=== PATIENT | male | born 1965 | race Caucasian/White ===

== ENCOUNTER 2018-08-11 10:52 | Day surgery (SDC) | payer BC, OTHER ==
[2018-08-11] MEDS ORDERED: Sodium Chloride 0.9% 2.5 ML Syringe FLUSH PRN (10:55)
[2018-08-11] MEDS ORDERED: Sodium Chloride 0.9% 10 ML Syringe FLUSH PRN (10:55)
[2018-08-11] MEDS ORDERED: HYDROmorphone 2 MG/ML Syringe IVPUSH ONE (10:55)
[2018-08-11] MEDS ORDERED: ceFAZolin 1 GM in Premix Bag 1 BAG IV ONE ×2 (10:56→11:39)
[2018-08-11] MEDS ORDERED: Ondansetron 4 MG/2 ML SDV IVPUSH ONE (10:56)
--- NOTE | 2018-08-11 11:06 | EDM.PDOC ---
ED HPI GENERAL MEDICAL PROBLEM - General Stated Complaint: INJURED HAND Time Seen by Provider: 08/11/18 10:55 Source of Information: Reports: Patient History Limitations: Reports: No Limitations - History of Present Illness INITIAL COMMENTS - FREE TEXT/NARRATIVE: History of present illness: []Patient was at work and the bucket of a backhoe crushed his left index and middle finger. Patient denies any other injuries. He has no sensation of his index finger and his middle finger is numb. Review of systems: As per history of present illness and below otherwise all systems reviewed and negative. Past medical history: As per history of present illness and as reviewed below otherwise noncontributory. Surgical history: As per history of present illness and as reviewed below otherwise noncontributory. Social history: No reported history of drug or alcohol abuse. Family history: As per history of present illness and as reviewed below otherwise noncontributory. Physical exam: General: Well developed, well nourished in NAD HEENT: Atraumatic, normocephalic, pupils reactive, negative for conjunctival pallor or scleral icterus, mucous membranes moist, throat clear, neck supple, nontender, trachea midline. Lungs: Clear to auscultation, breath sounds equal bilaterally, chest nontender. Heart: S1S2, regular, negative for clicks, rubs, or JVD. Abdomen: NABS, Soft, nondistended, nontender. Negative for masses or hepatosplenomegaly. Negative for costovertebral tenderness. Pelvis: Stable nontender. Genitourinary: Deferred. Rectal: Deferred. Extremities: Open crush injury/lacerations to the left index distal to MCP joints with visible bone and cartilage, distal portion of the finger is cool pale and insensate. There is also a crush injury/laceration to the left middle finger just proximal to the PIP joint with visible cartilage and bone. Patient has sensation distal to the injury and capillary refill is brisk. negative for cords or calf pain. Neurovascular unremarkable. Neuro: Awake, alert, oriented. Cranial nerves II through XII unremarkable. Cerebellum unremarkable. Motor and sensory unremarkable throughout. Exam nonfocal. Skin:warm and dry Diagnostics: X-ray left hand Therapeutics: Dilaudid, Zofran, Ancef, normal saline ED Course: 11 AM- Dr. Diaz consulted Impression: Crush Injury left next and middle fingers Prescriptions: Plan: Admit to the OR Definitive disposition and diagnosis as appropriate pending reevaluation and review of above. left hand Pain Score (Numeric/FACES): 2 - Related Data Allergies Allergy/AdvReac Type Severity Reaction Status Date / Time No Known Allergies Allergy Verified 08/11/18 11:05 Home Meds: Home Meds . [No Known Home Meds] 08/11/18 [History] Past Medical History Cardiovascular History: Reports: Hypertension - Infectious Disease History Infectious Disease History: Reports: Chicken Pox - Past Surgical History Male Surgical History: Reports: Other (See Below) Social & Family History - Caffeine Use Caffeine Use: Reports: Coffee Caffeine Use Comment: 1 cup/day ED ROS GENERAL - Review of Systems Review Of Systems: ROS reveals no pertinent complaints other than HPI. ED EXAM, UPPER BACK/NECK PAIN - Physical Exam Exam: See Below (See history of present illness) Course - Vital Signs Last Recorded V/S: Last Vital Signs Temp 96.2 F 08/11/18 11:00 Pulse 73 08/11/18 11:00 Resp 18 08/11/18 11:46 BP 142/95 H 08/11/18 11:00 Pulse Ox 100 08/11/18 11:46 - Orders/Labs/Meds Orders: Active Orders 24 hr Category Date Time Status Hand Comp Min 3V Rt [CR] Stat Exams 08/11/18 10:57 Stop Req Sodium Chloride 0.9% [Normal Saline] 1,000 ml Med 08/11/18 11:12 Active IV .Bolus Sodium Chloride 0.9% [Saline Flush] Med 08/11/18 10:55 Active 10 ml FLUSH ASDIRECTED PRN Sodium Chloride 0.9% [Saline Flush] Med 08/11/18 10:55 Active 2.5 ml FLUSH ASDIRECTED PRN ceFAZolin [Ancef] 1 gm Med 08/11/18 11:39 Active Premix Bag 1 bag IV ONETIME Saline Lock Insert [OM.PC] Stat Oth 08/11/18 10:55 Ordered Medication Orders Sodium Chloride (Normal Saline) 1,000 mls @ 999 mls/hr IV .Bolus ONE Stop: 08/11/18 12:12 Last Admin: 08/11/18 11:15 Dose: 999 mls/hr Cefazolin Sodium/Dextrose 1 gm (/ Premix) 50 mls @ 100 mls/hr IV ONETIME ONE Stop: 08/11/18 12:08 Last Admin: 08/11/18 11:44 Dose: 100 mls/hr Ondansetron HCl (Zofran) Confirm Administered Dose 4 mg .ROUTE .STK-MED ONE Stop: 08/11/18 11:45 Sodium Chloride (Saline Flush) 10 ml FLUSH ASDIRECTED PRN PRN Reason: Keep Vein Open Sodium Chloride (Saline Flush) 2.5 ml FLUSH ASDIRECTED PRN PRN Reason: Keep Vein Open Labs: Laboratory Tests 08/11/18 08/11/18 Range/Units 11:02 11:02 WBC 5.26 (4.0-11.0) K/uL RBC 4.75 (4.50-5.90) M/uL Hgb 15.5 (13.0-17.0) g/dL Hct 43.2 (38.0-50.0) % MCV 90.9 (80.0-98.0) fL MCH 32.6 H (27.0-32.0) pg MCHC 35.9 (31.0-37.0) g/dL RDW Std Deviation 41.0 (28.0-62.0) fl RDW Coeff of Kavin 12 (11.0-15.0) % Plt Count 229 (150-400) K/uL MPV 9.80 (7.40-12.00) fL Neut % (Auto) 59.0 (48.0-80.0) % Lymph % (Auto) 31.2 (16.0-40.0) % [place] % (Auto) 8.4 (0.0-15.0) % Eos % (Auto) 1.0 (0.0-7.0) % Baso % (Auto) 0.4 (0.0-1.5) % Neut # (Auto) 3.1 (1.4-5.7) K/uL Lymph # (Auto) 1.6 (0.6-2.4) K/uL [place] # (Auto) 0.4 (0.0-0.8) K/uL Eos # (Auto) 0.1 (0.0-0.7) K/uL Baso # (Auto) 0.0 (0.0-0.1) K/uL Nucleated RBC % 0.0 /100WBC Nucleated RBCs # 0 K/uL Sodium 142 (136-148) mmol/L Potassium 3.6 (3.5-5.1) mmol/L Chloride 105 (98-107) mmol/L Carbon Dioxide 23.6 (21.0-32.0) mmol/L BUN 16 (7.0-18.0) mg/dL Creatinine 1.4 H (0.8-1.3) mg/dL Est Cr Clr Drug Dosing 62.28 mL/min Estimated GFR (MDRD) 52.8 ml/min Glucose 74 (74-106) mg/dL Calcium 9.2 (8.5-10.1) mg/dL Total Bilirubin 0.8 (0.2-1.0) mg/dL AST 21 (15-37) IU/L ALT 32 (14-63) IU/L Alkaline Phosphatase 71 (46-116) U/L Total Protein 7.6 (6.4-8.2) g/dL Albumin 4.1 (3.4-5.0) g/dL Globulin 3.5 (2.6-4.0) g/dL Albumin/Globulin Ratio 1.2 (0.9-1.6) Meds: Medications Generic Name Dose Route Start Last Admin Trade Name Freq PRN Reason Stop Dose Admin Sodium Chloride 1,000 mls @ 999 mls/hr 08/11/18 11:12 08/11/18 11:15 Normal Saline IV 08/11/18 12:12 999 mls/hr .Bolus ONE Administration Cefazolin Sodium/Dextrose 1 gm 50 mls @ 100 mls/hr 08/11/18 11:39 08/11/18 11 :44 / Premix IV 08/11/18 12:08 100 mls/hr ONETIME ONE Administration Ondansetron HCl Confirm 08/11/18 11:44 Zofran Administered 08/11/18 11:45 Dose 4 mg .ROUTE .STK-MED ONE Sodium Chloride 10 ml 08/11/18 10:55 Saline Flush FLUSH ASDIRECTED PRN Keep Vein Open Sodium Chloride 2.5 ml 08/11/18 10:55 Saline Flush FLUSH ASDIRECTED PRN Keep Vein Open Discontinued Medications Generic Name Dose Route Start Last Admin Trade Name Freq PRN Reason Stop Dose Admin Hydromorphone HCl 1 mg 08/11/18 10:55 08/11/18 11:05 Dilaudid IVPUSH 08/11/18 10:56 1 mg ONETIME ONE Administration Cefazolin Sodium/Dextrose 1 gm 50 mls @ 100 mls/hr 08/11/18 10:56 08/11/18 11 :05 / Premix IV 08/11/18 11:25 100 mls/hr ONETIME ONE Administration Lidocaine Confirm 08/11/18 11:44 Xylocaine-Mpf 2% Administered 08/11/18 11:45 Dose 5 ml .ROUTE .STK-MED ONE Ondansetron HCl 4 mg 08/11/18 10:56 08/11/18 11:04 Zofran IVPUSH 08/11/18 10:57 4 mg ONETIME ONE Administration Rocuronium [place] Confirm 08/11/18 11:44 Zemuron Administered 08/11/18 11:45 Dose 100 mg .ROUTE .STK-MED ONE Succinylcholine Chloride Confirm 08/11/18 11:44 Quelicin Administered 08/11/18 11:45 Dose 200 mg .ROUTE .STK-MED ONE Departure - Departure Time of Disposition: 11:42 Disposition: Still A Patient 30 Condition: Good Clinical Impression: Crushing injury of left index finger, initial encounter, Crushing injury of left middle finger, initial encounter - Discharge Information *PRESCRIPTION DRUG MONITORING PROGRAM REVIEWED*: Not Applicable *COPY OF PRESCRIPTION DRUG MONITORING REPORT IN PATIENT ROHIT: Not Applicable - My Orders Last 24 Hours: My Active Orders 08/11/18 10:55 Sodium Chloride 0.9% [Saline Flush] 10 ml FLUSH ASDIRECTED PRN Sodium Chloride 0.9% [Saline Flush] 2.5 ml FLUSH ASDIRECTED PRN Saline Lock Insert [OM.PC] Stat 08/11/18 10:57 Hand Comp Min 3V Rt [CR] Stat 08/11/18 11:12 Sodium Chloride 0.9% [Normal Saline] 1,000 ml IV .Bolus 08/11/18 11:39 ceFAZolin [Ancef] 1 gm Premix Bag 1 bag IV ONETIME - Assessment/Plan Last 24 Hours: My Active Orders 08/11/18 10:55 Sodium Chloride 0.9% [Saline Flush] 10 ml FLUSH ASDIRECTED PRN Sodium Chloride 0.9% [Saline Flush] 2.5 ml FLUSH ASDIRECTED PRN Saline Lock Insert [OM.PC] Stat 08/11/18 10:57 Hand Comp Min 3V Rt [CR] Stat 08/11/18 11:12 Sodium Chloride 0.9% [Normal Saline] 1,000 ml IV .Bolus 08/11/18 11:39 ceFAZolin [Ancef] 1 gm Premix Bag 1 bag IV ONETIME
[2018-08-11] MEDS ORDERED: Sodium Chloride 0.9% 1,000 ML IV ONE (11:12)
--- NOTE | 2018-08-11 11:20 | CR ---
EXAMINATION: Left hand HISTORY: Crush COMPARISON: None TECHNIQUE: 3 views FINDINGS: There is extensively comminuted fracture involving the proximal second phalanx, mildly displaced. There is a likely intra-articular, dislocated fracture through the distal aspect of the third proximal phalanx. There is adjacent soft tissue swelling and moderate adjacent debris. Remaining osseous structures and joint spaces otherwise appear intact. Bone mineralization is normal. IMPRESSION: 1. Extensively comminuted proximal second phalanx fracture. 2. Likely intra-articular, fracture dislocation of the second proximal phalanx distally at the PIP joint.
[2018-08-11] MEDS ORDERED: Rocuronium 10 MG/ML 10 ML Syringe ONE (11:44)
[2018-08-11] MEDS ORDERED: Midazolam 1 MG/ML 2 ML SDV ONE (11:44)
[2018-08-11] MEDS ORDERED: fentaNYL 250 MCG/5 ML SDV ONE (11:44)
[2018-08-11] MEDS ORDERED: Lidocaine 2% 5 ML SDV ONE (11:44)
[2018-08-11] MEDS ORDERED: Succinylcholine 200 MG/10 ML MDV ONE (11:44)
[2018-08-11] MEDS ORDERED: Propofol 200 MG/20 ML SDV ONE (11:44)
[2018-08-11] MEDS ORDERED: Ondansetron 4 MG/2 ML SDV ONE (11:44)
--- NOTE | 2018-08-11 11:46 | PCM.PREANE ---
Preanesthetic Assessment - Anesthesia/Transfusion/Family Hx Anesthesia History: Prior Anesthesia Without Reaction Other Type of Anesthesia Reaction Comment: Denies any problem with prior nephrectomy (was kidney donor) Family History of Anesthesia Reaction: No - Review of Systems General: No Symptoms Pulmonary: No Symptoms Cardiovascular: No Symptoms Gastrointestinal: No Symptoms Neurological: No Symptoms Other: Reports: None - Physical Assessment NPO Status Date: 08/11/18 (candy bat 1 hr TRAVEL OT) O2 Sat by Pulse Oximetry: 100 Respiratory Rate: 18 Vital Signs: Last Vital Signs Temp 96.2 F 08/11/18 11:00 Pulse 73 08/11/18 11:00 Resp 18 08/11/18 11:00 BP 142/95 H 08/11/18 11:00 Pulse Ox 100 08/11/18 11:00 Height: 5 ft 10 in Weight: 90.718 kg ASA Class: 2E Mental Status: Alert & Oriented x3 Airway Class: Mallampati = 2 Dentition: Reports: Normal Dentition ROM/Head Extension: Full Lungs: Clear to Auscultation, Normal Respiratory Effort Cardiovascular: Regular Rate, Regular Rhythm - Lab Values: Laboratory Last Values WBC 5.26 K/uL (4.0-11.0) 08/11/18 11:02 RBC 4.75 M/uL (4.50-5.90) 08/11/18 11:02 Hgb 15.5 g/dL (13.0-17.0) 08/11/18 11:02 Hct 43.2 % (38.0-50.0) 08/11/18 11:02 MCV 90.9 fL (80.0-98.0) 08/11/18 11:02 MCH 32.6 pg (27.0-32.0) H 08/11/18 11:02 MCHC 35.9 g/dL (31.0-37.0) 08/11/18 11:02 RDW Std Deviation 41.0 fl (28.0-62.0) 08/11/18 11:02 RDW Coeff of Kavin 12 % (11.0-15.0) 08/11/18 11:02 Plt Count 229 K/uL (150-400) 08/11/18 11:02 MPV 9.80 fL (7.40-12.00) 08/11/18 11:02 Neut % (Auto) 59.0 % (48.0-80.0) 08/11/18 11:02 Lymph % (Auto) 31.2 % (16.0-40.0) 08/11/18 11:02 [place] % (Auto) 8.4 % (0.0-15.0) 08/11/18 11:02 Eos % (Auto) 1.0 % (0.0-7.0) 08/11/18 11:02 Baso % (Auto) 0.4 % (0.0-1.5) 08/11/18 11:02 Neut # (Auto) 3.1 K/uL (1.4-5.7) 08/11/18 11:02 Lymph # (Auto) 1.6 K/uL (0.6-2.4) 08/11/18 11:02 [place] # (Auto) 0.4 K/uL (0.0-0.8) 08/11/18 11:02 Eos # (Auto) 0.1 K/uL (0.0-0.7) 08/11/18 11:02 Baso # (Auto) 0.0 K/uL (0.0-0.1) 08/11/18 11:02 Nucleated RBC % 0.0 /100WBC 08/11/18 11:02 Nucleated RBCs # 0 K/uL 08/11/18 11:02 Sodium 142 mmol/L (136-148) 08/11/18 11:02 Potassium 3.6 mmol/L (3.5-5.1) 08/11/18 11:02 Chloride 105 mmol/L (98-107) 08/11/18 11:02 Carbon Dioxide 23.6 mmol/L (21.0-32.0) 08/11/18 11:02 BUN 16 mg/dL (7.0-18.0) 08/11/18 11:02 Creatinine 1.4 mg/dL (0.8-1.3) H 08/11/18 11:02 Est Cr Clr Drug Dosing 62.28 mL/min 08/11/18 11:02 Estimated GFR (MDRD) 52.8 ml/min 08/11/18 11:02 Glucose 74 mg/dL (74-106) 08/11/18 11:02 Calcium 9.2 mg/dL (8.5-10.1) 08/11/18 11:02 Total Bilirubin 0.8 mg/dL (0.2-1.0) 08/11/18 11:02 AST 21 IU/L (15-37) 08/11/18 11:02 ALT 32 IU/L (14-63) 08/11/18 11:02 Alkaline Phosphatase 71 U/L (46-116) 08/11/18 11:02 Total Protein 7.6 g/dL (6.4-8.2) 08/11/18 11:02 Albumin 4.1 g/dL (3.4-5.0) 08/11/18 11:02 Globulin 3.5 g/dL (2.6-4.0) 08/11/18 11:02 Albumin/Globulin Ratio 1.2 (0.9-1.6) 08/11/18 11:02 - Allergies Allergies/Adverse Reactions: Allergies Allergy/AdvReac Type Severity Reaction Status Date / Time No Known Allergies Allergy Verified 08/11/18 11:05 - Blood Blood Available: No - Anesthesia Plan Pre-Op Medication Ordered: Other (ancef 2 gms, dilaudid) - Acknowledgements Anesthesia Type Planned: General Anesthesia Pt an Appropriate Candidate for the Planned Anesthesia: Yes Alternatives and Risks of Anesthesia Discussed w Pt/Guardian: Yes Pt/Guardian Understands and Agrees with Anesthesia Plan: Yes Additional Comments: GET-RSI PreAnesthesia Questionnaire Cardiovascular History: Reports: Hypertension Hematologic History: Reports: Anticoagulation Therapy - Infectious Disease History Infectious Disease History: Reports: Chicken Pox - Past Surgical History Male Surgical History: Reports: Other (See Below) - SUBSTANCE USE Smoking Status *Q: Never Smoker Recreational Drug Use History: No - HOME MEDS Home Medications: Home Meds . [No Known Home Meds] 08/11/18 [History] - CURRENT (IN HOUSE) MEDS Current Meds: Current Medications Sodium Chloride (Normal Saline) 1,000 mls @ 999 mls/hr IV .Bolus ONE Stop: 08/11/18 12:12 Last Admin: 08/11/18 11:15 Dose: 999 mls/hr Cefazolin Sodium/Dextrose 1 gm (/ Premix) 50 mls @ 100 mls/hr IV ONETIME ONE Stop: 08/11/18 12:08 Sodium Chloride (Saline Flush) 10 ml FLUSH ASDIRECTED PRN PRN Reason: Keep Vein Open Sodium Chloride (Saline Flush) 2.5 ml FLUSH ASDIRECTED PRN PRN Reason: Keep Vein Open Discontinued Medications Hydromorphone HCl (Dilaudid) 1 mg IVPUSH ONETIME ONE Stop: 08/11/18 10:56 Last Admin: 08/11/18 11:05 Dose: 1 mg Cefazolin Sodium/Dextrose 1 gm (/ Premix) 50 mls @ 100 mls/hr IV ONETIME ONE Stop: 08/11/18 11:25 Last Admin: 08/11/18 11:05 Dose: 100 mls/hr Ondansetron HCl (Zofran) 4 mg IVPUSH ONETIME ONE Stop: 08/11/18 10:57 Last Admin: 08/11/18 11:04 Dose: 4 mg
[2018-08-11] MEDS ORDERED: Bupivacaine 0.25% 10 ML SDV ONE (12:19)
[2018-08-11] MEDS ORDERED: Lidocaine 1% 20 ML MDV ONE (12:19)
[2018-08-11] MEDS ORDERED: Bupivacaine 0.25%/EPINEPHrine 1:200,000 10 ML SDV ONE (12:26)
[2018-08-11] MEDS ORDERED: ePHEDrine 50 MG/ML SDV ONE (12:48)
[2018-08-11] MEDS ORDERED: Atropine 0.1 MG/ML 10 ML Syringe IVPUSH PRN ×2 (12:55)
[2018-08-11] MEDS ORDERED: EPINEPHrine 1:10,000 1 MG/10 ML Syringe IVPUSH PRN (12:55)
[2018-08-11] MEDS ORDERED: Albuterol 0.083% 2.5 MG/3 ML Neb Soln NEB PRN (12:55)
[2018-08-11] MEDS ORDERED: 50% Dextrose in Water 50 ML Syringe IVPUSH PRN (12:55)
[2018-08-11] MEDS ORDERED: fentaNYL 100 MCG/2 ML SDV IVPUSH PRN (12:55)
[2018-08-11] MEDS ORDERED: Naloxone 0.4 MG/ML Syringe IVPUSH PRN (12:55)
--- NOTE | 2018-08-11 14:41 | PCM.HP ---
H&P History of Present Illness - General Date of Service: 08/11/18 Admit Problem/Dx: crush injury to thee left hand Index and middle fingers Source of Information: Patient, Provider, RN History Limitations: Reports: No Limitations - History of Present Illness Initial Comments - Free Text/Narative: Patient using heavy equipment and the bucket of the cut off machine unloader filled with gravel came down on his hand. Smashed the left index and middle fingers. No other injuries. Small abrasion to the ring finger. Index finger is not viable and white, non-sensate with skin loss and significant bony comminution, middle finger with viability and sensate. We discussed thoroughly the risks and benefits and I would recommend amputation fo the index. We will try to salvage the middle but the fracture pattern at the PIP joint is very poor. He understands and all questions answered. Onset of Symptoms: Reports: Today, Sudden Symptom Onset Date: 08/11/18 Duration of Symptoms: Reports: Minutes: (30) Location: Reports: Upper Extremity, Left Quality: Reports: Ache, Pressure, Throbbing Severity: Moderate Improves with: Reports: None Worsens with: Reports: None, Movement Context: Denies: Trauma Associated Symptoms: Reports: No Other Symptoms left hand Pain Score (Numeric/FACES): 2 - Related Data Allergies/Adverse Reactions: Allergies Allergy/AdvReac Type Severity Reaction Status Date / Time No Known Allergies Allergy Verified 08/11/18 11:05 Home Medications: Home Meds . [No Known Home Meds] 08/11/18 [History] Past Medical History Cardiovascular History: Reports: Hypertension Hematologic History: Reports: Anticoagulation Therapy - Infectious Disease History Infectious Disease History: Reports: Chicken Pox - Past Surgical History Male Surgical History: Reports: Other (See Below) Social & Family History - Family History Family Medical History: Noncontributory - Tobacco Use Smoking Status *Q: Never Smoker - Caffeine Use Caffeine Use: Reports: Coffee Caffeine Use Comment: 1 cup/day - Recreational Drug Use Recreational Drug Use: No H&P Review of Systems - Review of Systems: Review Of Systems: See Below General: Reports: No Symptoms HEENT: Reports: No Symptoms Pulmonary: Reports: No Symptoms Cardiovascular: Reports: No Symptoms Gastrointestinal: Reports: No Symptoms Genitourinary: Reports: No Symptoms Musculoskeletal: Reports: Hand Pain Skin: Reports: Wound Psychiatric: Reports: No Symptoms Neurological: Reports: Numbness (left index and ulnar aspect of left middle finger. ) Hematologic/Lymphatic: Reports: No Symptoms Immunologic: Reports: No Symptoms Exam - Exam Exam: See Below - Vital Signs Vital Signs: Last Vital Signs Temp 96.2 F 08/11/18 11:00 Pulse 92 08/11/18 14:24 Resp 12 08/11/18 14:24 BP 136/84 08/11/18 14:24 Pulse Ox 92 L 08/11/18 14:24 Weight: 200 lb - Exam General: Alert, Oriented, Cooperative HEENT: EOMI, Mucosa Moist & Price Neck: Supple Lungs: Clear to Auscultation, Normal Respiratory Effort Cardiovascular: Regular Rate, Regular Rhythm GI/Abdominal Exam: Soft Extremities: Other (left index finger is white and not viable. Tendon intact but skin with complete transection and not communicating with proximal skin. Significnat bony comminution and contamination. Tissue damage. The middle finger has normal capillary refill but open wound at the pip joint area with near circumferential involvement of the skin. Less surroundign trauma but still with poor fracture pattern of the pip joint. Tendons intact at least partially on the volar aspect. ) Skin: Warm, Dry, Wound (open wound as above on the left middle and index fingers. ABrasion to the left ring finger dorsally superficial. ) Neurological: Other (distally numb on the index finger. Middle finger sensate on the radial aspect - less on the ulnar aspect. ) Neuro Extensive - Mental Status: Alert, Oriented x3 Psychiatric: Alert, Normal Affect, Normal Mood - Patient Data Lab Results Last 24 hrs: Laboratory Results - last 24 hr 08/11/18 08/11/18 Range/Units 11:02 11:02 WBC 5.26 (4.0-11.0) K/uL RBC 4.75 (4.50-5.90) M/uL Hgb 15.5 (13.0-17.0) g/dL Hct 43.2 (38.0-50.0) % MCV 90.9 (80.0-98.0) fL MCH 32.6 H (27.0-32.0) pg MCHC 35.9 (31.0-37.0) g/dL RDW Std Deviation 41.0 (28.0-62.0) fl RDW Coeff of Kavin 12 (11.0-15.0) % Plt Count 229 (150-400) K/uL MPV 9.80 (7.40-12.00) fL Neut % (Auto) 59.0 (48.0-80.0) % Lymph % (Auto) 31.2 (16.0-40.0) % [place] % (Auto) 8.4 (0.0-15.0) % Eos % (Auto) 1.0 (0.0-7.0) % Baso % (Auto) 0.4 (0.0-1.5) % Neut # (Auto) 3.1 (1.4-5.7) K/uL Lymph # (Auto) 1.6 (0.6-2.4) K/uL [place] # (Auto) 0.4 (0.0-0.8) K/uL Eos # (Auto) 0.1 (0.0-0.7) K/uL Baso # (Auto) 0.0 (0.0-0.1) K/uL Nucleated RBC % 0.0 /100WBC Nucleated RBCs # 0 K/uL Sodium 142 (136-148) mmol/L Potassium 3.6 (3.5-5.1) mmol/L Chloride 105 (98-107) mmol/L Carbon Dioxide 23.6 (21.0-32.0) mmol/L BUN 16 (7.0-18.0) mg/dL Creatinine 1.4 H (0.8-1.3) mg/dL Est Cr Clr Drug Dosing 62.28 mL/min Estimated GFR (MDRD) 52.8 ml/min Glucose 74 (74-106) mg/dL Calcium 9.2 (8.5-10.1) mg/dL Total Bilirubin 0.8 (0.2-1.0) mg/dL AST 21 (15-37) IU/L ALT 32 (14-63) IU/L Alkaline Phosphatase 71 (46-116) U/L Total Protein 7.6 (6.4-8.2) g/dL Albumin 4.1 (3.4-5.0) g/dL Globulin 3.5 (2.6-4.0) g/dL Albumin/Globulin Ratio 1.2 (0.9-1.6) Result Diagrams: 08/11/18 11:02 08/11/18 11:02 *Q Meaningful Use (ADM) - VTE *Q VTE Anticoagulation Contraindications: Med/TX Not Indicated/Need - VTE Risk Assess *Q Each Risk Factor Represents 1 Point: Age 41 - 59 years, Minor Surgery Planned Total Score 1 Point Risk Factors: 2 Each Risk Factor Represents 2 Points: None Total Score 2 Point Risk Factors: 0 Each Risk Factor Represents 3 Points: None Total Score 3 Point Risk Factors: 0 Each Risk Factor Represents 5 Points: None Total Score 5 Point Risk Factors: 0 Venous Thromboembolism Risk Factor Score *Q: 2 - Problem List (1) Traumatic amputation of left index finger SNOMED Code(s): 42226995 ICD Code: S68.111A - COMPLETE TRAUMATIC MCP AMPUTATION OF LEFT INDEX FINGER, INIT Status: Acute Priority: High Current Visit: Yes (2) Laceration of extensor muscle, fascia and tendon of left index finger at wrist and hand level, initial encounter SNOMED Code(s): 115730212, 702973045 ICD Code: S66.321A - LACERAT EXTN MUSC/FASC/TEND L IDX FNGR AT [facility]/D , INIT Status: Acute Priority: High Current Visit: Yes (3) Laceration of flexor muscle, fascia and tendon of left index finger at wrist and hand level, initial encounter SNOMED Code(s): 818224079, 203314444 ICD Code: S66.121A - LACERAT FLEXOR MUSC/FASC/TEND L IDX FNGR AT [facility]/D , INIT Status: Acute Priority: High Current Visit: Yes (4) Fracture of proximal phalanx of left index finger SNOMED Code(s): 983641480 ICD Code: S62.611A - DISP FX OF PROXIMAL PHALANX OF LEFT INDEX FINGER, INIT Status: Acute Priority: High Current Visit: Yes Qualifiers: Encounter type: initial encounter Fracture type: open Fracture alignment : displaced Qualified Code(s): S62.611B - Displaced fracture of proximal phalanx of left index finger, initial encounter for open fracture (5) Fracture of proximal phalanx of left middle finger SNOMED Code(s): 737176328 ICD Code: S62.613A - DISP FX OF PROXIMAL PHALANX OF LEFT MIDDLE FINGER, INIT Status: Acute Priority: High Current Visit: Yes Qualifiers: Encounter type: initial encounter Fracture type: open Fracture alignment : displaced Qualified Code(s): S62.613B - Displaced fracture of proximal phalanx of left middle finger, initial encounter for open fracture (6) Crushing injury of left index finger, initial encounter SNOMED Code(s): 88828016, 00341900 ICD Code: S67.191A - CRUSHING INJURY OF LEFT INDEX FINGER, INITIAL ENCOUNTER Status: Acute Priority: High Current Visit: Yes (7) Crushing injury of left middle finger, initial encounter SNOMED Code(s): 60253529, 01529690 ICD Code: S67.193A - CRUSHING INJURY OF LEFT MIDDLE FINGER, INITIAL ENCOUNTER Status: Acute Priority: High Current Visit: Yes Problem List Initiated/Reviewed/Updated: Yes Orders Last 24hrs: Active Orders 24 hr Category Date Time Status Blood Glucose Check, Bedside [RC] PRN Care 08/11/18 12:55 Active Notify Provider Vital Signs [RC] ASDIRECTED Care 08/11/18 12:55 Active Oxygen Therapy [RC] PRN Care 08/11/18 12:55 Active RT Aerosol Therapy [RC] ASDIRECTED Care 08/11/18 12:55 Active RT Aerosol Therapy [RC] ASDIRECTED Care 08/11/18 12:55 Active Verify Patient Consent Obtain [RC] ASDIRECTED Care 08/11/18 11:49 Active Vital Signs [RC] Q5M Care 08/11/18 12:55 Active Nothing per Oral Now Diet [DIET] Diet 08/11/18 Breakfast Active Hand Comp Min 3V Rt [CR] Stat Exams 08/11/18 10:57 Stop Req Albuterol [Proventil Neb Soln] Med 08/11/18 12:55 Active 2.5 mg NEB ONETIME PRN Atropine [Atropine 0.1 MG/ML] Med 08/11/18 12:55 Active 0.5 mg IVPUSH ASDIRECTED PRN Atropine [Atropine 0.1 MG/ML] Med 08/11/18 12:55 Active 1 mg IVPUSH ASDIRECTED PRN Dextrose 50% in Water Med 08/11/18 12:55 Active 50 ml IVPUSH ASDIRECTED PRN EPINEPHrine [EPINEPHrine 1:10,000] Med 08/11/18 12:55 Active 1 mg IVPUSH ASDIRECTED PRN Naloxone [Narcan] Med 08/11/18 12:55 Active 0.1 mg IVPUSH ASDIRECTED PRN Sodium Chloride 0.9% [Saline Flush] Med 08/11/18 10:55 Active 10 ml FLUSH ASDIRECTED PRN Sodium Chloride 0.9% [Saline Flush] Med 08/11/18 10:55 Active 2.5 ml FLUSH ASDIRECTED PRN fentaNYL [Sublimaze] Med 08/11/18 12:55 Active 50 mcg IVPUSH Q5M PRN Medication Administration Instruction [OM.PC] Routine Ot 08/11/18 11:49 Ordered Saline Lock Insert [OM.PC] Stat Ot 08/11/18 10:55 Ordered Medication Orders Albuterol (Proventil Neb Soln) 2.5 mg NEB ONETIME PRN PRN Reason: Wheezing Atropine Sulfate (Atropine 0.1 Mg/Ml) 0.5 mg IVPUSH ASDIRECTED PRN PRN Reason: Hypo-perfusion Atropine Sulfate (Atropine 0.1 Mg/Ml) 1 mg IVPUSH ASDIRECTED PRN PRN Reason: Hypo-Perfusion Dextrose/Water (Dextrose 50% In Water) 50 ml IVPUSH ASDIRECTED PRN PRN Reason: Hypoglycemia Epinephrine HCl (Epinephrine 1:10,000) 1 mg IVPUSH ASDIRECTED PRN PRN Reason: ACLS Guidelines Fentanyl (Sublimaze) 50 mcg IVPUSH Q5M PRN PRN Reason: Pain Naloxone HCl (Narcan) 0.1 mg IVPUSH ASDIRECTED PRN PRN Reason: Respiratory Depression Sodium Chloride (Saline Flush) 10 ml FLUSH ASDIRECTED PRN PRN Reason: Keep Vein Open Sodium Chloride (Saline Flush) 2.5 ml FLUSH ASDIRECTED PRN PRN Reason: Keep Vein Open Assessment/Plan Comment:: To OR for irrigation, debridement and repair. Informed consent obtained and risks and benefits discussed thoroughly. All questions answered. Anticipate amputation of the index and possible salvage of the middle. Will monitor overnight for pain control and additional observation.
--- NOTE | 2018-08-11 14:49 | PCM.OPNOTE ---
- General Post-Op/Procedure Note Date of Surgery/Procedure: 08/11/18 Operative Procedure(s): 1. Amputation at the mCP joint of the left index finger. 2. Flexor Tendon Repair left middle finger zone 2. 3. Extensor tendon repair left middle finger. 4. Open reduction and internal fixation of the left middle finger proximal phalanx fracture. Pre Op Diagnosis: left index and middle finger crush injuries with near amputations. Post-Op Diagnosis: left index finger amputation, left middle finger extensor tendon laceration, left middle finger flexor digitorum superficialis tendon laceration and partial profundus laceration 40%, left middle finger proximal phalanx intraarticular open displaced fracture Anesthesia Technique: General ET Tube, Local Primary Surgeon: Martha Diaz Complications: None Condition: Fair
[2018-08-11] MEDS ORDERED: Morphine 2 MG/ML Syringe IVPUSH PRN (15:00)
[2018-08-11] MEDS ORDERED: Ibuprofen 800 MG Tab PO PRN (15:00)
[2018-08-11] MEDS ORDERED: Ondansetron 4 MG Tab.DIS PO PRN (15:00)
--- NOTE | 2018-08-11 15:05 | PCM.POSTAN ---
POST ANESTHESIA ASSESSMENT - MENTAL STATUS Mental Status: Alert, Oriented - RESPIRATORY Respiratory Status: Respiratory Rate WNL, Airway Patent, O2 Saturation Stable - CARDIOVASCULAR CV Status: Pulse Rate WNL, Blood Pressure Stable - GASTROINTESTINAL GI Status: No Symptoms - PAIN Pain Score: 0 - POST OP HYDRATION Hydration Status: Adequate & Stable - OBSERVATIONS Free Text/Narrative:: The patient tolerated the procedure well. There were no apparent anesthetic complications at this time. Discharge to floor per criteria.
[2018-08-11] MEDS ORDERED: Prochlorperazine 5 MG in Sodium Chloride 0.9% 50 ML IV PRN (16:36)
[2018-08-11] MEDS ORDERED: Promethazine 25 MG Tab PO PRN (16:36)
--- NOTE | 2018-08-11 16:39 | PCM.SN ---
- Free Text/Narrative Note: Patient doing well post op except nausea. Denies pain. Will add compazine and phenergan as options/backup if needed. Continue pain control and close observation.
[2018-08-11] MEDS ORDERED: Prochlorperazine 10 MG/2 ML SDV IV PRN (16:50)
--- NOTE | 2018-08-11 18:13 | OR ---
SURGEON: JEAN TREJO MD DATE OF PROCEDURE: 08/11/2018 PROCEDURE: 1. Left index finger revision amputation at the MCP joint. 2. Left middle finger extensor tendon laceration repair. 3. Left middle finger flexor digitorum superficialis tendon laceration repair zone 2. 4. Left middle finger flexor digitorum profundus laceration of 40% - trimming and debridement. 5. Left middle finger proximal phalanx open reduction and internal fixation. PREOPERATIVE DIAGNOSIS: Left index and middle finger crush injuries with near amputation. POSTOPERATIVE DIAGNOSES: 1. Left index finger amputation. 2. Left middle finger extensor tendon laceration. 3. Left middle finger flexor digitorum superficialis tendon laceration. 4. Left middle finger flexor digitorum profundus laceration of 40%. 5. Left middle finger proximal phalanx intra-articular open displaced fracture. LIVE HANGER: None. ANESTHESIA: General ET tube with local. INDICATIONS: Mr. Slade is a 53-year-old gentleman who had a smash injury to his left index middle finger. He was seen in the emergency room, and risks and benefits were discussed of evaluation and treatment as necessary in the operating room. The index finger is likely nonviable and has significant comminution of the bony underlying structures, and thus revision amputation was discussed here. The middle finger is salvageable, though may require significant therapy to get back to normal use and range of motion. He understands this and would like to try. Risks and benefits were discussed including, but not limited to, bleeding, infection, damage to underlying or overlying structures, possible need for future interventions, and possible scarring. PROCEDURE IN DETAIL: After informed consent was obtained and placed on the chart, the patient was brought to the operating theater and laid in supine position. After adequate general anesthesia was obtained, the area was prepped and draped, and a time-out was completed to confirm side and site. Attention was first paid to the left index finger and a significant combination of the bone in addition to damage to the neurovascular bundles and significant loss of skin structure was elected for amputation. The amputation was completed at the metacarpophalangeal joint with traction neurectomies to the neurovascular bundles to ensure appropriate sensation and hopefully to prevent neuroma formation. Once the traction neurectomies were completed, hemostasis was obtained and the skin was closed in a horizontal mattress fashion at the metacarpophalangeal joint. Tendons were left in situ. Attention was then paid to the left middle finger and first, fluoroscopy was used to confirm the position of the bone. The bone was openly reduced under direct visualization and confirmed with fluoroscopy. A 0.45 K-wires were then placed through the open wounds under direct visualization from the distal fragments into the proximal portion. Appropriate reduction was obtained here, and thus additional 4-0 FiberWire stitch was used to secure the two small bone fragments dorsally. It is not anatomic, but it is very good for this type of fracture pattern. It is functional. Once adequately reapproximated for the bone, attention was then paid to the extensor tendon laceration. There was a longitudinal laceration through the extensor tendon causing it to sublux the lateral side. This was repaired using the 4-0 FiberWire in an interrupted horizontal mattress fashion. Once this was completed, attention was paid to the volar aspect of the finger. Neurovascular bundles were appreciated to be intact on the radial aspect of the finger. The ulnar aspect of the finger does have its digital nerve intact. We did not opt given the significant damage to the artery. We did not opt for microvascular repair. This was trimmed, hemostased, and attention was then paid to the flexor tendons. The flexor digitorum superficialis on the ulnar aspect was lacerated and this was repaired using a 4-0 FiberWire in a [id number] fashion. Once adequately repaired, attention was paid to the flexor digitorum profundus. Unfortunately, this was lacerated, but only approximately 30% to 40%. The bulk of the tendon was intact and given its proximity to the A2 jannie, it was elected to not repair this and it would likely cause more bulk in significant more scarring. Once this was trimmed appropriately and the digitorum superficialis had been repaired, the skin was closed in a horizontal mattress fashion using 5-0 nylon stitch. This was done after copious irrigation. The patient was then placed in a short-arm volar splint after dressings with Xeroform, fluffs, and a Kerlix. The patient tolerated this well. All counts and needles were correct at the end of the case. FOLLOWUP INSTRUCTIONS: We will maintain the patient in the hospital overnight for pain control and watch closely as well as deal with his nausea. ABEL / SUE /[id number] MTDD
[2018-08-12] MEDS: Acetaminophen/HYDROcodone 325-5 MG Tab PO PRN ×2 (02:14→06:05)
[2018-08-12 08:08] VITALS: BP 128/89
--- NOTE | 2018-08-12 09:10 | PCM.SURGPN ---
- General Info Date of Service: 08/12/18 POD#: 1 Post-Op Diagnosis: amputation of left index finger and repair of left middle finger tendons and bone. 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 Intact over radial aspect. ) Psychiatric: Reports: No Symptoms - Patient Data Vitals - Most Recent: Last Vital Signs Temp 97.8 F 08/12/18 08:00 Pulse 69 08/12/18 08:00 Resp 16 08/12/18 08:00 BP 128/89 08/12/18 08:00 Pulse Ox 97 08/12/18 08:00 Weight - Most Recent: 200 lb I&O - Last 24 Hours: Intake & Output 08/11/18 08/12/18 08/12/18 23:59 07:59 15:59 Intake Total 1000 750 Output Total 625 950 Balance 375 -200 Lab Results Last 24 Hrs: Laboratory Results - last 24 hr 08/11/18 08/11/18 Range/Units 11:02 11:02 WBC 5.26 (4.0-11.0) K/uL RBC 4.75 (4.50-5.90) M/uL Hgb 15.5 (13.0-17.0) g/dL Hct 43.2 (38.0-50.0) % MCV 90.9 (80.0-98.0) fL MCH 32.6 H (27.0-32.0) pg MCHC 35.9 (31.0-37.0) g/dL RDW Std Deviation 41.0 (28.0-62.0) fl RDW Coeff of Kavin 12 (11.0-15.0) % Plt Count 229 (150-400) K/uL MPV 9.80 (7.40-12.00) fL Neut % (Auto) 59.0 (48.0-80.0) % Lymph % (Auto) 31.2 (16.0-40.0) % [place] % (Auto) 8.4 (0.0-15.0) % Eos % (Auto) 1.0 (0.0-7.0) % Baso % (Auto) 0.4 (0.0-1.5) % Neut # (Auto) 3.1 (1.4-5.7) K/uL Lymph # (Auto) 1.6 (0.6-2.4) K/uL [place] # (Auto) 0.4 (0.0-0.8) K/uL Eos # (Auto) 0.1 (0.0-0.7) K/uL Baso # (Auto) 0.0 (0.0-0.1) K/uL Nucleated RBC % 0.0 /100WBC Nucleated RBCs # 0 K/uL Sodium 142 (136-148) mmol/L Potassium 3.6 (3.5-5.1) mmol/L Chloride 105 (98-107) mmol/L Carbon Dioxide 23.6 (21.0-32.0) mmol/L BUN 16 (7.0-18.0) mg/dL Creatinine 1.4 H (0.8-1.3) mg/dL Est Cr Clr Drug Dosing 62.28 mL/min Estimated GFR (MDRD) 52.8 ml/min Glucose 74 (74-106) mg/dL Calcium 9.2 (8.5-10.1) mg/dL Total Bilirubin 0.8 (0.2-1.0) mg/dL AST 21 (15-37) IU/L ALT 32 (14-63) IU/L Alkaline Phosphatase 71 (46-116) U/L Total Protein 7.6 (6.4-8.2) g/dL Albumin 4.1 (3.4-5.0) g/dL Globulin 3.5 (2.6-4.0) g/dL Albumin/Globulin Ratio 1.2 (0.9-1.6) Med Orders - Current: Current Medications Hydrocodone Bitart/Acetaminophen ([place] 325-5 Mg) 1 tab PO Q4H PRN PRN Reason: Pain (moderate 4-6) Last Admin: 08/12/18 06:05 Dose: 2 tab Ibuprofen (Motrin) 800 mg PO Q8H PRN PRN Reason: Pain (mild 1-3) Last Admin: 08/12/18 05:16 Dose: 800 mg Morphine Sulfate (Morphine) 2 mg IVPUSH Q2H PRN PRN Reason: Pain (severe 7-10) Ondansetron HCl (Zofran Odt) 4 mg PO Q6H PRN PRN Reason: Nausea/Vomiting Last Admin: 08/11/18 19:26 Dose: 4 mg Prochlorperazine Edisylate (Compazine) 5 mg IV Q6H PRN PRN Reason: NAUSEA AFTER ZOFRAN Promethazine HCl (Phenergan) 25 mg PO Q4H PRN PRN Reason: Nausea/Vomiting Sodium Chloride (Saline Flush) 10 ml FLUSH ASDIRECTED PRN PRN Reason: Keep Vein Open Sodium Chloride (Saline Flush) 2.5 ml FLUSH ASDIRECTED PRN PRN Reason: Keep Vein Open Discontinued Medications Albuterol (Proventil Neb Soln) 2.5 mg NEB ONETIME PRN PRN Reason: Wheezing Atropine Sulfate (Atropine 0.1 Mg/Ml) 0.5 mg IVPUSH ASDIRECTED PRN PRN Reason: Hypo-perfusion Atropine Sulfate (Atropine 0.1 Mg/Ml) 1 mg IVPUSH ASDIRECTED PRN PRN Reason: Hypo-Perfusion Bupivacaine HCl (Sensorcaine-Mpf 0.25%) Confirm Administered Dose 10 ml .ROUTE .STK-MED ONE Stop: 08/11/18 12:20 Bupivacaine HCl/Epinephrine Bitart (Marcaine 0.25%/Epinephrine 1:200,000) Confirm Administered Dose 10 ml .ROUTE .STK-MED ONE Stop: 08/11/18 12:27 Dextrose/Water (Dextrose 50% In Water) 50 ml IVPUSH ASDIRECTED PRN PRN Reason: Hypoglycemia Ephedrine Sulfate (Ephedrine Sulfate) Confirm Administered Dose 50 mg .ROUTE .STK-MED ONE Stop: 08/11/18 12:49 Epinephrine HCl (Epinephrine 1:10,000) 1 mg IVPUSH ASDIRECTED PRN PRN Reason: ACLS Guidelines Fentanyl (Sublimaze) Confirm Administered Dose 250 mcg .ROUTE .STK-MED ONE Stop: 08/11/18 11:45 Fentanyl (Sublimaze) 50 mcg IVPUSH Q5M PRN PRN Reason: Pain Hydromorphone HCl (Dilaudid) 1 mg IVPUSH ONETIME ONE Stop: 08/11/18 10:56 Last Admin: 08/11/18 11:05 Dose: 1 mg Cefazolin Sodium/Dextrose 1 gm (/ Premix) 50 mls @ 100 mls/hr IV ONETIME ONE Stop: 08/11/18 11:25 Last Admin: 08/11/18 11:05 Dose: 100 mls/hr Sodium Chloride (Normal Saline) 1,000 mls @ 999 mls/hr IV .Bolus ONE Stop: 08/11/18 12:12 Last Admin: 08/11/18 11:15 Dose: 999 mls/hr Cefazolin Sodium/Dextrose 1 gm (/ Premix) 50 mls @ 100 mls/hr IV ONETIME ONE Stop: 08/11/18 12:08 Last Admin: 08/11/18 11:44 Dose: 100 mls/hr Prochlorperazine Edisylate 5 (mg/ Sodium Chloride) 51 mls @ 150 mls/hr IV Q6H PRN PRN Reason: Nausea/Vomiting Lidocaine (Xylocaine-Mpf 2%) Confirm Administered Dose 5 ml .ROUTE .STK-MED ONE Stop: 08/11/18 11:45 Lidocaine HCl (Xylocaine 1%) Confirm Administered Dose 20 ml .ROUTE .STK-MED ONE Stop: 08/11/18 12:20 Midazolam HCl (Versed 1 Mg/Ml) Confirm Administered Dose 2 mg .ROUTE .STK-MED ONE Stop: 08/11/18 11:45 Naloxone HCl (Narcan) 0.1 mg IVPUSH ASDIRECTED PRN PRN Reason: Respiratory Depression Ondansetron HCl (Zofran) 4 mg IVPUSH ONETIME ONE Stop: 08/11/18 10:57 Last Admin: 08/11/18 11:04 Dose: 4 mg Ondansetron HCl (Zofran) Confirm Administered Dose 4 mg .ROUTE .STK-MED ONE Stop: 08/11/18 11:45 Propofol (Diprivan 20 Ml) Confirm Administered Dose 200 mg .ROUTE .STK-MED ONE Stop: 08/11/18 11:45 Rocuronium [place] (Zemuron) Confirm Administered Dose 100 mg .ROUTE .STK-MED ONE Stop: 08/11/18 11:45 Succinylcholine Chloride (Quelicin) Confirm Administered Dose 200 mg .ROUTE .STK -MED ONE Stop: 08/11/18 11:45 - Exam General: Alert, Oriented, Cooperative, No Acute Distress HEENT: Pupils Equal, Pupils Reactive, EOMI Lungs: Normal Respiratory Effort Extremities: Limited Range of Motion (due to pins and swelling of the middle finger. Ring and small with good range and no limitations aside from some minor swelling. ) Skin: Warm, Dry, Intact Neurological: No New Focal Deficit Psy/Mental Status: Alert, Normal Affect, Normal Mood - Problem List & Annotations (1) Traumatic amputation of left index finger SNOMED Code(s): 88662840 Code(s): S68.111A - COMPLETE TRAUMATIC MCP AMPUTATION OF LEFT INDEX FINGER, INIT Status: Acute Priority: High Current Visit: Yes (2) Laceration of extensor muscle, fascia and tendon of left index finger at wrist and hand level, initial encounter SNOMED Code(s): 500141163, 548010372 Code(s): S66.321A - LACERAT EXTN MUSC/FASC/TEND L IDX FNGR AT S/HND LV, INIT Status: Acute Priority: High Current Visit: Yes (3) Laceration of flexor muscle, fascia and tendon of left index finger at wrist and hand level, initial encounter SNOMED Code(s): 420234811, 320672879 Code(s): S66.121A - LACERAT FLEXOR MUSC/FASC/TEND L IDX FNGR AT S/HND , INIT Status: Acute Priority: High Current Visit: Yes (4) Fracture of proximal phalanx of left index finger SNOMED Code(s): 708496908 Code(s): S62.611A - DISP FX OF PROXIMAL PHALANX OF LEFT INDEX FINGER, INIT Status: Acute Priority: High Current Visit: Yes Qualifiers: Encounter type: initial encounter Fracture type: open Fracture alignment : displaced Qualified Code(s): S62.611B - Displaced fracture of proximal phalanx of left index finger, initial encounter for open fracture (5) Fracture of proximal phalanx of left middle finger SNOMED Code(s): 840747007 Code(s): S62.613A - DISP FX OF PROXIMAL PHALANX OF LEFT MIDDLE FINGER, INIT Status: Acute Priority: High Current Visit: Yes Qualifiers: Encounter type: initial encounter Fracture type: open Fracture alignment : displaced Qualified Code(s): S62.613B - Displaced fracture of proximal phalanx of left middle finger, initial encounter for open fracture (6) Crushing injury of left index finger, initial encounter SNOMED Code(s): 11035887, 40433758 Code(s): S67.191A - CRUSHING INJURY OF LEFT INDEX FINGER, INITIAL ENCOUNTER Status: Acute Priority: High Current Visit: Yes (7) Crushing injury of left middle finger, initial encounter SNOMED Code(s): 27958112, 01015891 Code(s): S67.193A - CRUSHING INJURY OF LEFT MIDDLE FINGER, INITIAL ENCOUNTER Status: Acute Priority: High Current Visit: Yes - Problem List Review Problem List Initiated/Reviewed/Updated: Yes - My Orders Last 24 Hours: Active Orders 24 hr Category Date Time Status Patient Status [ADT] Routine ADT 08/11/18 15:00 Active Blood Glucose Check, Bedside [RC] PRN Care 08/11/18 12:55 Inactive Elevate Extremity [RC] BID Care 08/11/18 15:00 Active Oxygen Therapy [RC] PRN Care 08/11/18 12:55 Active Vital Signs [RC] Q4H Care 08/11/18 15:00 Active Wound Care [RC] DAILY Care 08/11/18 15:00 Active Regular Diet [DIET] Diet 08/11/18 Dinner Active Hand Comp Min 3V Rt [CR] Stat Exams 08/11/18 10:57 Stop Req Acetaminophen/HYDROcodone [[place] 325-5 MG] Med 08/11/18 15:00 Active 1 tab PO Q4H PRN Ibuprofen [Motrin] Med 08/11/18 15:00 Active 800 mg PO Q8H PRN Morphine Med 08/11/18 15:00 Active 2 mg IVPUSH Q2H PRN Ondansetron [Zofran ODT] Med 08/11/18 15:00 Active 4 mg PO Q6H PRN Prochlorperazine [Compazine] Med 08/11/18 16:50 Active 5 mg IV Q6H PRN Promethazine [Phenergan] Med 08/11/18 16:36 Active 25 mg PO Q4H PRN Sodium Chloride 0.9% [Saline Flush] Med 08/11/18 10:55 Active 10 ml FLUSH ASDIRECTED PRN Sodium Chloride 0.9% [Saline Flush] Med 08/11/18 10:55 Active 2.5 ml FLUSH ASDIRECTED PRN Medication Administration Instruction [OM.PC] Routine Oth 08/11/18 11:49 Ordered Saline Lock Insert [OM.PC] Stat Oth 08/11/18 10:55 Ordered Medication Orders Hydrocodone Bitart/Acetaminophen ([place] 325-5 Mg) 1 tab PO Q4H PRN PRN Reason: Pain (moderate 4-6) Last Admin: 08/12/18 06:05 Dose: 2 tab Admin: 08/12/18 02:14 Dose: 1 tab Ibuprofen (Motrin) 800 mg PO Q8H PRN PRN Reason: Pain (mild 1-3) Last Admin: 08/12/18 05:16 Dose: 800 mg Morphine Sulfate (Morphine) 2 mg IVPUSH Q2H PRN PRN Reason: Pain (severe 7-10) Ondansetron HCl (Zofran Odt) 4 mg PO Q6H PRN PRN Reason: Nausea/Vomiting Last Admin: 08/11/18 19:26 Dose: 4 mg Prochlorperazine Edisylate (Compazine) 5 mg IV Q6H PRN PRN Reason: NAUSEA AFTER ZOFRAN Promethazine HCl (Phenergan) 25 mg PO Q4H PRN PRN Reason: Nausea/Vomiting Sodium Chloride (Saline Flush) 10 ml FLUSH ASDIRECTED PRN PRN Reason: Keep Vein Open Sodium Chloride (Saline Flush) 2.5 ml FLUSH ASDIRECTED PRN PRN Reason: Keep Vein Open - Plan Plan (Free Text/Narrative):: The patient is seen today POD 1 s/p amputation of the left index finger and repair of the raight middle finger tendons and bone. Doing well and healing nicely. No signs of infection or excess bleeding. Tolerating diet and will plan d/c home on oral pain meds and keflex. Follow up in about 10 days, call sooner with any issues or concerns.
--- NOTE | 2018-08-16 16:22 | CR ---
EXAMINATION: Right hand HISTORY: Revision amputation COMPARISON: 08/11/2018 TECHNIQUE: 5 views FINDINGS/IMPRESSION: Operative control films demonstrate amputation of a second digit. 2 pins are noted fixating a reduced proximal third phalanx fracture.
== END 2018-08-12 09:45 | disposition home or self-care (01) ==
LOC: MW.ED 10:52 → MW.SDS 11:45 → MW.ICU 14:38 → MW.SDS 08-12 09:45
PROVIDERS: ATTEND Plastic Surgery
DX: S62.613B Displaced fracture of proximal phalanx of left middle finger, initial encounter for open fracture (principal); S66.323A Laceration of extensor muscle, fascia and tendon of left middle finger at wrist and hand level, initial encounter; S66.123A Laceration of flexor muscle, fascia and tendon of left middle finger at wrist and hand level, initial encounter; S68.111A Complete traumatic metacarpophalangeal amputation of left index finger, initial encounter; S60.415A Abrasion of left ring finger, initial encounter; I10 Essential (primary) hypertension; W31.89XA Contact with other specified machinery, initial encounter
CPT/HCPCS: 26356; 26418; 26735; 26910; 36415; 73130; 80053; 85025; 88302; 96365; 96366; 96375; 99284; A9270; J0330; J0690; J1170; J2001; J2250; J2405; J2704; J3010; J3490; J7040; 76000; 76000-26; 99283